=== PATIENT | male | born 1955 | race Caucasian/White ===

== ENCOUNTER 2017-04-23 02:30 | Inpatient (IN) | payer OTHER ==
[~2017-04-23] VITALS: Ht 167.6 cm; Wt 56.7 kg
[~2017-04-23 02:30] MED LIST: ASPI81CT89 PO; LEVO0.173 PO; SIMV20TA1 PO
--- NOTE | 2017-04-23 02:30 | NUR ---
DAYRON T ER BED 4
--- NOTE | 2017-04-23 02:38 | NUR ---
Patient being evaluated by physician at bedside.
[2017-04-23] MEDS ORDERED: NACL 0.9% 1,000 ML IV ONE ×2 (02:40→03:20)
[2017-04-23] MEDS ORDERED: ONDANSETRON 4 MG/2 ML VIAL IVP ONE (02:40)
[2017-04-23] MEDS ORDERED: MORPHINE SULFATE 4 MG/ML SYR IVP ONE ×2 (02:40→03:10)
--- NOTE | 2017-04-23 02:45 | NUR ---
62Y/M BIBA C/O CHEST PAIN X1 HOUR W/ SOB. PMH HIGH CHOLESTEROL, COPD, AND THYROID DZ. PER EMS PT WAS AT REST WHEN CP STARTED, PT TOOK 325 OF ASPIRIN, EMS GAVE 2 NITRO SL, STARTED 18G IV TO LEFT AC, AND PUT PT ON 4L NC. PT IS C/O SUBSTERNAL CP, PRESSURE, SOB. BL LUNG SOUNDS CLEAR THROUGHOUT, TACHYPNEA NOTED, SHALLOW RESPIRATIONS/LABORED. PT HAS 10/10 CHEST PAIN, SUBSTERNAL, NON RADIATING, PRESSURE. PT IN BED SIDE RAILS UPX2, ER MD NOTIFIED OF PT STATUS.
[2017-04-23 02:51] LABS: BASOPHILS # (AUTO) 0.2 K/uL (0.00-0.22); BASOPHILS % (AUTO) 2.7 % (0.0-2.0); EOSINOPHILS # (AUTO) 0.1 K/uL (0-0.4); EOSINOPHILS % (AUTO) 1.1 % (0.0-4.0); HEMATOCRIT 37.2 % (36-52); HEMOGLOBIN 12.4 g/dL (12.0-18.0); LYMPHOCYTES # (AUTO) 0.6 K/uL (2.0-11.5); LYMPHOCYTES % (AUTO) 7.9 % (20.5-51.1); MEAN CORPUSCULAR HEMOGLOBIN 29 pg (27-31); MEAN CORPUSCULAR HGB CONC 33 g/dL (33-37); MEAN CORPUSCULAR VOLUME 88 fL (80-94); MONOCYTES # (AUTO) 0.5 K/uL (0.8-1.0); MONOCYTES % (AUTO) 5.8 % (1.7-9.3); NEUTROPHILS # (AUTO) 6.7 K/uL (1.8-7.7); PLATELET COUNT (AUTO) 266 K/uL (140-450); RED BLOOD CELL COUNT(AUTO) 4.23 MIL/uL (4.20-6.10); RED CELL DISTRIBUTION WIDTH 14.8 % (11.6-13.7); WHITE BLOOD COUNT (AUTO) 8.1 K/uL (4.8-10.8)
[2017-04-23 02:56] VITALS: BP 97/69
[2017-04-23 03:04] LABS: ANION GAP 13.7 (8-16); CARBON DIOXIDE 25.3 mmol/L (21-32); CREATININE 1.9 mg/dL (0.7-1.3)
[2017-04-23] MEDS ORDERED: NITROGLYCERIN 0.4 MG TAB SL ONE (03:05)
[2017-04-23 03:07] LABS: NEUTROPHILS % (AUTO) 82.5 % (42.2-75.2)
[2017-04-23 03:10] LABS: ALBUMIN 3.4 g/dL (3.4-5.0); TOTAL BILIRUBIN 0.4 mg/dL (0.0-1.0)
[2017-04-23 03:19] LABS: PROTHROMBIN TIME 10.2 secs (10.8-13.4)
--- NOTE | 2017-04-23 03:50 | NUR ---
PT TAKEN TO CT VIA [facility] .
[2017-04-23] MEDS ORDERED: DOCU-299 PO (03:53)
[2017-04-23] MEDS ORDERED: TAMS0.4C96 PO (03:53)
[2017-04-23] MEDS ORDERED: FINA5TAB1 PO (03:53)
--- NOTE | 2017-04-23 04:07 | NUR ---
PT RETURNED FROM CT.
--- NOTE | 2017-04-23 04:10 | NUR ---
PT IN BED RESTING, WILL CONTINUE TO MONITOR.
--- NOTE | 2017-04-23 04:16 | NUR ---
Patient will be admitted to care of DR LUNDBERG. Admited to TELE. Will go to room 111B. Belongings list completed. Report to JONG.
[2017-04-23] MEDS ORDERED: VANCOMYCIN 1,000 MG in DEXTROSE 5% 250 ML IV ONE (04:20)
[2017-04-23] MEDS ORDERED: VANCOMYCIN 1,000 MG VIAL ONE (04:37)
[2017-04-23 04:40] LABS: FREE T4 (FREE THYROXINE) 0.83 ng/dL (0.76-1.46); THYROID STIMULATING HORMONE 23.75 uIU/mL (0.34-3.74)
--- NOTE | 2017-04-23 04:48 | NUR ---
LAB AT BEDSIDE ON TELE FLOOR, VANCOMYCIN IVPB GIVEN TO CARA TO GIVE TO FLOOR RN TO START AFTER CULTURES PER DR. MONTLEONGO.
--- NOTE | 2017-04-23 05:02 | NUR ---
PT ARRIVED ON UNIT VIA GURNEY AND AMBULATED TO BED WITH STEADY GAIT. PT IS A/OX4, ON 10L O2 VIA NONREBREATHER MASK. PT HAS A LEFT AC 18G IV. SKIN INTACT. SAFETY PRECAUTIONS IN PLACE. UPDATED BOARD. DISCUSSED PLAN OF CARE WITH PT, PT VERBALIZED UNDERSTANDING. VITAL SIGNS WITHIN NORMAL LIMITS. PT IN STABLE CONDITION, NO SIGNS OF DISTRESS NOTED. BED IN LOW POSITION, CALL LIGHT WITHIN REACH. WILL CONTINUE TO MONITOR.
[2017-04-23 06:00] VITALS: BP 136/91
[2017-04-23] MEDS ORDERED: PNEUMOCOCCAL VACCINE 23 MCG/0.5 ML VIAL IMVAC PRN (06:10)
[2017-04-23] MEDS ORDERED: INFLUENZA VIRUS VACCINE QUAD 0.5 ML SYR IMVAC PRN (06:10)
[2017-04-23] MEDS ORDERED: NITROGLYCERIN 0.4 MG TAB SL PRN (06:35)
[2017-04-23] MEDS ORDERED: ONDANSETRON 4 MG/2 ML VIAL IVP PRN (06:35)
--- NOTE | 2017-04-23 06:35 | NUR ---
SPOKE TO DR SCHUSTER ABOUT ORDERS FOR PT. GAVE ORDERS OVER PHONE BECAUSE HIS HOME COMPUTER WAS NOT WORKING.
[2017-04-23] MEDS: DEXT 5% / NACL 0.45% 1,000 ML IV SCH (07:11)
--- NOTE | 2017-04-23 07:35 | NUR ---
ENDORSED PT TO DAY SHIFT RN, PT IN STABLE CONDITION.
[2017-04-23] MEDS: ECOTRIN 81 MG TABEC PO SCH (08:48)
[2017-04-23] MEDS: METOPROLOL 25 MG TAB PO SCH ×2 (08:49→21:02)
[2017-04-23] MEDS ORDERED: ENOXAPARIN 40 MG/0.4 ML SYR SUBQ SCH (09:00)
--- NOTE | 2017-04-23 09:56 | NUR ---
PATIENT HAS BEEN SCREENED AND CATEGORIZED MODERATE NUTRITION RISK. PATIENT WILL BE SEEN WITHIN 3-5 DAYS OF ADMISSION. 04/25/17-04/27/[address]
[2017-04-23] MEDS: IPRATROPIUM 0.02% 0.5 MG/2.5 ML NEBU INH SCH ×4 (11:08→23:38)
[2017-04-23 13:35] LABS: ANION GAP 10.7 (8-16); CARBON DIOXIDE 25.6 mmol/L (21-32); CREATININE 1.4 mg/dL (0.7-1.3); POTASSIUM 4.3 mmol/L (3.5-5.1)
--- NOTE | 2017-04-23 15:02 | NUR ---
CM NOTE INITIAL REVIEW FAXED TO [facility] [phone] MARTIN PH# [phone] AND TO [facility] [phone] PH# [phone]
[2017-04-23] MEDS ORDERED: LEVOFLOXACIN 500 MG TAB PO SCH (16:00)
[2017-04-23 16:03] VITALS: BP 92/56
--- NOTE | 2017-04-23 19:25 | NUR ---
RECEIVED REPORT FROM DAY SHIFT RN AT PT BEDSIDE. PT IS A/OX4, ON 4L O2 VIA OXYMIZER. PT HAS A LEFT AC 18G IV. SKIN INTACT. AMBULATES WITH STEADY GAIT. SAFETY PRECAUTIONS IN PLACE. UPDATED BOARD. DISCUSSED PLAN OF CARE WITH PT, PT VERBALIZED UNDERSTANDING. VITAL SIGNS STABLE. PT IN STABLE CONDITION, NO SIGNS OF DISTRESS NOTED. BED IN LOW POSITION, CALL LIGHT WITHIN REACH. WILL CONTINUE TO MONITOR.
[2017-04-23 20:02] VITALS: BP 135/53
[2017-04-23 20:07] LABS: CREATINE KINASE MB 1.4 ng/mL (0-3.6)
[2017-04-23] MEDS ORDERED: SIMVASTATIN 20 MG TAB PO SCH (21:00)
[2017-04-23] MEDS ORDERED: FINASTERIDE 5 MG TAB PO SCH (21:00)
[2017-04-23] MEDS ORDERED: TAMSULOSIN 0.4 MG CAP PO SCH (21:00)
[2017-04-23] MEDS: DOCUSATE SODIUM 100 MG GELCAP PO SCH (21:01)
[2017-04-23] MEDS: ENOXAPARIN 60 MG/0.6 ML SYR SUBQ SCH (21:04)
--- NOTE | 2017-04-23 21:06 | NUR ---
ADMINISTERED SCHEDULED MEDICATIONS, PT TOLERATED WELL. PT REFUSED ZOCOR, EDUCATED PT ON RISKS AND BENEFITS, PT VERBALIZED UNDERSTANDING AND STILL REFUSED. PT IN STABLE CONDITION, NO SIGNS OF DISTRESS NOTED. BED LIGHT IN LOW POSITION, CALL LIGHT WITHIN REACH. WILL CONTINUE TO MONITOR.
[2017-04-23 22:10] LABS: APPEARANCE,URINE CLEAR (CLEAR); BILIRUBIN,URINE NEGATIVE (NEGATIVE); BLOOD, URINE NEGATIVE (NEGATIVE); LEUKOCYTE ESTERASE ,URINE NEGATIVE (NEGATIVE); NITRITE, URINE NEGATIVE (NEGATIVE); UGLUCOSE NEGATIVE (NEGATIVE)
[2017-04-23 22:13] LABS: COLOR,URINE STRAW (YELLOW)
[2017-04-24] VITALS: BP 104/62
[2017-04-24] MEDS: DEXT 5% / NACL 0.45% 1,000 ML IV SCH (02:35)
[2017-04-24] MEDS: IPRATROPIUM 0.02% 0.5 MG/2.5 ML NEBU INH SCH ×4 (02:47→15:00)
[2017-04-24 04:00] VITALS: BP 90/56
--- NOTE | 2017-04-24 05:55 | NUR ---
ADMINISTERED SCHEDULED MEDICATIONS, PT TOLERATED WELL. PT IN STABLE CONDITION, NO SIGNS OF DISTRESS NOTED. BED IN LOW POSITION, CALL LIGHT WITHIN REACH. WILL CONTINUE TO MONITOR.
[2017-04-24] MEDS ORDERED: LEVOTHYROXINE 0.1 MG TAB PO SCH (06:30)
[2017-04-24] MEDS ORDERED: LEVOTHYROXINE 0.1 MG, LEVOTHYROXINE 0.075 MG PO SCH ×2 (06:30)
[2017-04-24 07:08] LABS: BASOPHILS % (AUTO) 0.9 % (0.0-2.0); EOSINOPHILS # (AUTO) 0.1 K/uL (0-0.4); EOSINOPHILS % (AUTO) 1.6 % (0.0-4.0); HEMATOCRIT 29.3 % (36-52); HEMOGLOBIN 9.6 g/dL (12.0-18.0); LYMPHOCYTES # (AUTO) 0.5 K/uL (2.0-11.5); LYMPHOCYTES % (AUTO) 10.9 % (20.5-51.1); MEAN CORPUSCULAR HEMOGLOBIN 29 pg (27-31); MEAN CORPUSCULAR HGB CONC 33 g/dL (33-37); MEAN CORPUSCULAR VOLUME 89 fL (80-94); MONOCYTES # (AUTO) 0.6 K/uL (0.8-1.0); MONOCYTES % (AUTO) 13.1 % (1.7-9.3); NEUTROPHILS # (AUTO) 3.7 K/uL (1.8-7.7); NEUTROPHILS % (AUTO) 73.5 % (42.2-75.2); PLATELET COUNT (AUTO) 170 K/uL (140-450); RED BLOOD CELL COUNT(AUTO) 3.28 MIL/uL (4.20-6.10); RED CELL DISTRIBUTION WIDTH 15.1 % (11.6-13.7); WHITE BLOOD COUNT (AUTO) 4.9 K/uL (4.8-10.8)
[2017-04-24 07:18] LABS: ANION GAP 7.1 (8-16); CARBON DIOXIDE 28.5 mmol/L (21-32); CREATININE 1.2 mg/dL (0.7-1.3); POTASSIUM 4.6 mmol/L (3.5-5.1)
--- NOTE | 2017-04-24 07:26 | NUR ---
ENDORSED PT IN STABLE CONDITION TO DAY SHIFT RN AT BEDSIDE FOR CONTINUITY OF CARE.
--- NOTE | 2017-04-24 07:30 | NUR ---
RECEIVED PT AWAKE. NO SOB NOTED. NO C/O PAIN AT THIS TIME. IV TO LT AC PATENT AND INTACT. CHEST DIMINISHED AIR ENTRY TO THE BASES WITH O2 AT 4LPM VIA OXYMIZER, O2 SATS AT 93%. ABDOMEN SOFT, BOWEL SOUNDS PRESENT. NO EDEMA NOTED. INSTRUCTED PT TO CALL FOR ASSISTANCE, CALL LIGHT WITHIN REACH, PT VERBALIZED UNDERSTANDING.
[2017-04-24 08:00] VITALS: BP 103/65
[2017-04-24] MEDS ORDERED: ASPIRIN 81 MG TAB.CHEW PO SCH (09:00)
[2017-04-24] MEDS ORDERED: NON-FORMULARY ITEM (Levothyroxine Sodium* (Synthroid*) 0.175 MG) PO SCH (09:00)
--- NOTE | 2017-04-24 09:11 | NUR ---
DAMIÁN NOTE CONCURRENT REVIEW FAXED TO [facility] [phone] AND TO [facility] [phone] PH# [phone]. PER [facility] DAMIÁN SALAZAR PH# [phone], USE [facility] FOR DME HOME O2. FAXED ORDER FOR HOME O2 TO [facility] [phone] ATTN: CASTRO # [phone].
[2017-04-24] MEDS: ECOTRIN 81 MG TABEC PO SCH (09:44)
[2017-04-24] MEDS: METOPROLOL 25 MG TAB PO SCH (09:44)
[2017-04-24] MEDS: DOCUSATE SODIUM 100 MG GELCAP PO SCH (09:44)
[2017-04-24] MEDS: ENOXAPARIN 60 MG/0.6 ML SYR SUBQ SCH (09:45)
[2017-04-24] MEDS ORDERED: LEVOTHYROXINE SODIUM PO (10:01)
[2017-04-24] MEDS ORDERED: SPIMDI INH (10:01)
[2017-04-24] MEDS ORDERED: LEVO500T2 PO (10:10)
[2017-04-24 12:00] VITALS: BP 131/73
--- NOTE | 2017-04-24 12:48 | NUR ---
CM NOTE PER [facility] DAMIÁN SALAZAR, FOR [facility] O2 AUTH# [id number]. PER CASTRO OF [facility]# [phone], PORTABLE O2 TANK WILL BE DELIVERED TO PATIENT BEDSIDE TODAY ETA 1500. PER CASTRO, OXYGEN CONCENTRATOR WILL BE DELIVERED TO PATIENT'S HOME TODAY AROUND LATE AFTERNOON TO EVENING TIME, TO MAKE SURE SOMEBODY IS AT HOME TO RECEIVE IT, AFTER WHICH PATIENT CAN GO HOME ONCE OXYGEN CONCENTRATOR HAS BEEN DELIVERED TO THE HOME. NURSE BRENDAN TELLO.
--- NOTE | 2017-04-24 15:45 | NUR ---
OXYGEN TANK IS DELIVERED AT THE PT'S BEDSIDE BY A LEAD SHAREPOINT DEVELOPER. PT SIGNED THE DELIVERY NOTICE. PER PT, THE CONCENTRATOR WILL BE DELIVERED TO HIS HOME ADDRESS AROUND 6 PM TONIGHT. PT IS AWARE THAT HE CAN NOT BE DISCHARGED UNTIL THE CONCENTRATOR HAS ARRIVED. PT VERBALIZED UNDERSTANDING.
[2017-04-24 16:00] VITALS: BP 127/84
[2017-04-24] MEDS ORDERED: LEVOFLOXACIN 250 MG TAB PO SCH (16:00)
--- NOTE | 2017-04-24 16:00 | NUR ---
PT'S IV INFILTRATED. STATED HE DOES NOT WANT TO HAVE A NEW LINE. PT STATED HE WILL STARTED HIS ORAL ANTIBIOTIC LEVAQUIN TONIGHT AT HOME. PT ALSO DO NOT WANT TO HAVE THE TELE BOX. Addendum: 04/24/17 at 1848 by Shara Arauz RN PT STATED HE WILL START HIS ORAL ANTIBIOTIC LEVAQUIN TONIGHT AT HOME.
--- NOTE | 2017-04-24 18:30 | NUR ---
PT STATED THE CONCENTRATOR HAS ARRIVED IN HIS PLACE IN [place] AND SOMEBODY IS COMING TO PICK HIM UP. DISCHARGE INSTRUCTIONS AND PRESCRIPTIONS GIVEN TO PT WHICH VERBALIZED FULL UNDERSTANDING OF THE INSTRUCTIONS GIVEN AND AND THE NEED TO FOLLOW UP WITH PCP WITHIN 7 DAYS.
--- NOTE | 2017-04-24 18:40 | NUR ---
PT ESCORTED OUT IN STABLE CONDITION WITH OXYGEN AT 2 LPM VIA NASAL CANNULA. NO SOB NOTED. NO COMPLAINTS MADE. PT IS D/C HOME WITH A FRIEND.
== END 2017-04-24 18:40 | disposition home or self-care (01) | DRG 682 ==
LOC: MED 02:30 → MTU 03:56
PROVIDERS: ADMIT Hospitalist; ATTEND Hospitalist
PROC: 3E0234Z Introduction of Serum, Toxoid and Vaccine into Muscle, Percutaneous Approach (ICD-10-PCS; principal; 2017-04-24)
DX: N17.9 Acute kidney failure, unspecified (principal); J18.9 Pneumonia, unspecified organism; C34.90 Malignant neoplasm of unspecified part of unspecified bronchus or lung; R07.89 Other chest pain; J44.9 Chronic obstructive pulmonary disease, unspecified; E03.9 Hypothyroidism, unspecified; N40.0 Benign prostatic hyperplasia without lower urinary tract symptoms; Z88.0 Allergy status to penicillin; Z79.82 Long term (current) use of aspirin; Z79.899 Other long term (current) drug therapy; Z92.21 Personal history of antineoplastic chemotherapy; Z92.3 Personal history of irradiation; Z80.9 Family history of malignant neoplasm, unspecified; Z87.891 Personal history of nicotine dependence; Z23 Encounter for immunization
CPT/HCPCS: 36415; 36600; 71010; 71250; 80048; 80053; 81003; 82550; 82553; 82803; 83605; 83880; 84439; 84443; 84484; 85025; 85379; 85610; 85730; 87040; 87081; 90658; 90732; 93005; 93970; 94640; 96374; 96375; 99285; J1650; J2270; J2405; J3370; J7030; J7060; J7644; Q0092

== ENCOUNTER 2017-08-07 19:20 | Inpatient (IN) | payer OTHER ==
[~2017-08-07] VITALS: Ht 167.6 cm; Wt 62.6 kg
[~2017-08-07 19:20] MED LIST changes: +DOCU-299 PO; +FINA5TAB1 PO; -LEVO0.173 PO; +LEVO500T2 PO; +LEVOTHYROXINE SODIUM PO; +SPIMDI INH; +TAMS0.4C96 PO
[2017-08-07 19:27] VITALS: BP 146/67
--- NOTE | 2017-08-07 19:40 | NUR ---
62 Y/O M W/C/O PT REPORTS NECK AND FACE SWELLING X 4 DAYS. 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 MILD SOB NOTED. PT SPEAKING IN 3-4 WORD SENTENCES. PER PT, STATES HIS MD INFORMED HIS THYROID LEVELS ARE HIGH. MED HX: LUNG CA, COPD, PROSTATE RX: SIMVASTATIN, FINASTERIDE, DOCUSATE,LEVOTHYROXINE, TAMSULOSIN, HYDROCODONE, SPIRIVA
[2017-08-07] MEDS ORDERED: NACL 0.9% 500 ML IV SCH (19:50)
[2017-08-07] MEDS ORDERED: DILTIAZEM 25 MG/5 ML VIAL IVP ONE ×4 (20:10→22:20)
--- NOTE | 2017-08-07 20:15 | NUR ---
PT CONTINUES TACHY, CONTINUES TO DENY ANY CHEST PAIN, ON NC 2 LT. ER MD MADE AWARE.
[2017-08-07 20:17] LABS: BASOPHILS # (AUTO) 0.1 K/uL (0.00-0.22); EOSINOPHILS # (AUTO) 0.1 K/uL (0-0.4); EOSINOPHILS % (AUTO) 0.8 % (0.0-4.0); HEMOGLOBIN 13.2 g/dL (12.0-18.0); LYMPHOCYTES # (AUTO) 0.4 K/uL (2.0-11.5); LYMPHOCYTES % (AUTO) 6.3 % (20.5-51.1); MEAN CORPUSCULAR HEMOGLOBIN 28 pg (27-31); MEAN CORPUSCULAR HGB CONC 32 g/dL (33-37); MEAN CORPUSCULAR VOLUME 90 fL (80-94); MONOCYTES # (AUTO) 0.8 K/uL (0.8-1.0); MONOCYTES % (AUTO) 12.7 % (1.7-9.3); NEUTROPHILS % (AUTO) 78.2 % (42.2-75.2); PLATELET COUNT (AUTO) 195 K/uL (140-450); RED BLOOD CELL COUNT(AUTO) 4.66 MIL/uL (4.20-6.10); RED CELL DISTRIBUTION WIDTH 18.8 % (11.6-13.7); WHITE BLOOD COUNT (AUTO) 6.4 K/uL (4.8-10.8)
--- NOTE | 2017-08-07 20:21 | NUR ---
XRAY AT BEDSIDE
[2017-08-07] MEDS ORDERED: ALBUTEROL SULFATE/IPRATROPIU 3 ML SOL IH ONE (20:25)
[2017-08-07 20:30] LABS: ANION GAP 18.7 (8-16); CREATININE 1.6 mg/dL (0.7-1.3); POTASSIUM 4.7 mmol/L (3.5-5.1)
[2017-08-07 20:36] LABS: ALBUMIN 3.4 g/dL (3.4-5.0); TOTAL BILIRUBIN 1.2 mg/dL (0.0-1.0)
--- NOTE | 2017-08-07 20:40 | NUR ---
MOVED TO ER BED 3
--- NOTE | 2017-08-07 20:40 | NUR ---
PT STATES HE ISTILL UNABLE TO PROVIDE URINE SAMPLE. FLORECITA FLOWERS INFORMED.
[2017-08-07 20:41] LABS: PROTHROMBIN TIME 15.5 secs (10.8-13.4)
--- NOTE | 2017-08-07 20:45 | NUR ---
Regina diego in [facility] - 08/08/17 at 0213 by ABDIAS PT HEART RATE DECREASED TO 110, AFTER ADMINISTRATION OF DILTIAZEM 10 MG IV PUSH.
[2017-08-07] MEDS ORDERED: NACL 0.9% 1,000 ML IV ONE ×3 (21:20→22:00)
--- NOTE | 2017-08-07 21:20 | NUR ---
PT CONTINUES TACHY ON CURED MEATS SUPERVISOR, ER MADE AWARE.
--- NOTE | 2017-08-07 21:20 | NUR ---
Regina diego in ED - 08/08/17 at 0213 by ABDIAS PT RAMOS LARSEN ON MERCHANDISE ASSOCIATE, FLORECITA FLOWERS MADE AWARE.
[2017-08-07] MEDS ORDERED: ASPIRIN 81 MG TAB.CHEW PO ONE (21:35)
--- NOTE | 2017-08-07 21:38 | NUR ---
PT STATES HE DOESNT FEEL LIKE URINATING AT THE MOMENT TO PROVIDE A URINE SAMPLE, ER MADE AWARE.
[2017-08-07] MEDS ORDERED: ACETAMINOPHEN 325 MG TAB PO PRN (21:50)
[2017-08-07] MEDS ORDERED: ALBUTEROL 0.083% 2.5 MG/3 ML NEBU INH PRN (21:50)
[2017-08-07] MEDS ORDERED: MORPHINE SULFATE 2 MG/ML SYR IVP PRN (21:50)
[2017-08-07] MEDS ORDERED: ONDANSETRON 4 MG/2 ML VIAL IVP PRN (21:50)
[2017-08-07] MEDS ORDERED: DILTIAZEM 25 MG/5 ML VIAL IVP PRN (22:00)
--- NOTE | 2017-08-07 22:06 | NUR ---
[facility]
--- NOTE | 2017-08-07 22:15 | NUR ---
ER SPEAKING TO PT AND PT'S AT BEDSIDE.
--- NOTE | 2017-08-07 22:45 | NUR ---
PT HEART RATE DECREASED TO 110, AFTER ADMINISTRATION OF DILTIAZEM 10 MG IV PUSH.
--- NOTE | 2017-08-07 22:50 | NUR ---
Patient will be admitted to care of DR BERGERON. Admited to TELEMETRY ROOM 120. Belongings list completed. Report to JACOB NAVARRO.
[2017-08-07 22:55] VITALS: BP 125/85
--- NOTE | 2017-08-07 22:55 | NUR ---
ADMITTED A 62 M FROM ER. CAME BY TUSHAR ACCOMPANIED BY . PT ON TELE MONITOR - 123 ,UNCONTROLLED A [id number]. PT IS AWAKE,ALERT AND ORIENTED X4. ON O22L/NC WITH O2 SAT 97 %. RESP -22/MIN. AFEBRILE. WITH GEN WEAKNESS. SAID HAS POOR APPETITE FOR 2 WEEKS. NO C/O ANY PAIN NOTED. HAS HL ON THE LT AC #20. CLEAR AND PATENT. SKIN INTACT. NO EDEMA NOTED. PLAN OF CARE DISCUSSED AND VERBALIZED UNDERSTANDING. BED ON LOWEST POSITION, CALL LIGHT PLACED WITHIN EASY REACH. FREQUENT ROUNDS NEEDED. WILL CONTINUE TO MONITOR.
[2017-08-07] MEDS: LEVOFLOXACIN 250 MG/D5 PREMIX 50 ML IV SCH (23:58)
[2017-08-08] VITALS (7 sets, daily range): BP systolic 100–144; BP diastolic 68–99
--- NOTE | 2017-08-08 00:45 | NUR ---
PAGED DR. BERGERON, RECREATIONAL RESORT MANAGER. CALLED BACK . MADE AWARE ABOUT THE LACTIC ACID 5.0 ,NO NEW ORDER MADE. ALSO ABOUT THE HR STILL ON THE 140. SHE SAID TO CALL DR. ALAN Guo
--- NOTE | 2017-08-08 00:55 | NUR ---
PAGED DR. Sari PHILLIPS FOR HR STILL ON 140. SVT , PROBABLE A FLUTER AND WHEN SLOW UNCONTROLLED A FIB. CALLED BACK WITH ORDER.
[2017-08-08] MEDS: ALBUTEROL 0.083% 2.5 MG/3 ML NEBU INH SCH ×4 (01:00→19:32)
[2017-08-08] MEDS: IPRATROPIUM 0.02% 0.5 MG/2.5 ML NEBU INH SCH ×4 (01:00→19:32)
--- NOTE | 2017-08-08 01:23 | NUR ---
HR 140/MIN .PT NO C/O ANY DISCOMFORT NOTED. DIGOXIN 0.5MG IVP GIVEN PER DR. ALAN Guo ORDER. WILL CONTINUE TO MONITOR.
[2017-08-08] MEDS ORDERED: DIGOXIN 0.25 MG/ML AMP IV SCH (01:30)
--- NOTE | 2017-08-08 01:31 | NUR ---
RN AT BED SIDE, HR IS 141 HOLD HHNTX , NO SOB OR ANY RESPIRATORY DISTRESS
--- NOTE | 2017-08-08 02:14 | NUR ---
PICKED UP BY NUCLEAR [employer] TECH FOR PULMONARY VQ SCAN WITH O22L/NC ON BY WHEELCHAIR. ACCOMPANIED BY ME DURING THE TEST. PT SAID HE IS OK WITH NO PAIN/DISCOMFORT NOTED.
--- NOTE | 2017-08-08 02:23 | NUR ---
PT IN NUCLEAR LAB. BP NOT TAKEN BUT HR TAKEN ON THE TELE MONITOR 136/MIN. PT NO C/O ANY PAIN NOR DISCOMFORT WHILE IN NUCLEAR LAB.
--- NOTE | 2017-08-08 02:41 | NUR ---
PT STILL IN NUCLEAR MED. TELE MONITOR ON. HR CONVERTED TO SR 97/MIN.
--- NOTE | 2017-08-08 02:55 | NUR ---
BACK FROM [facility]. TOLERATED PROCEDURE WELL. NO SOB NOTED.
[2017-08-08] MEDS ORDERED: HEPARIN PER PHARMACY MC PRN ×3 (05:15→05:30)
--- NOTE | 2017-08-08 05:15 | NUR ---
DR. BOYKIN PAGED FOR RESULT OF PULMONARY VQ SCAN. CALLED BACK , MADE AWARE. WITH ORDER TO START HEPARIN DRIP PER PHARMACY.
[2017-08-08] MEDS ORDERED: hePARIN / DEXT 5% PREMIX 250 ML IV SCH (05:20)
--- NOTE | 2017-08-08 06:00 | NUR ---
ANOTHER IV ACCESS STARTED BY JACOB ESPINOCLAIMS EXAMINER ON THE LT HAND #22 FOR HEPARIN DRIP.
[2017-08-08 06:24] LABS: BASOPHILS # (AUTO) 0.1 K/uL (0.00-0.22); BASOPHILS % (AUTO) 1.7 % (0.0-2.0); EOSINOPHILS # (AUTO) 0.1 K/uL (0-0.4); EOSINOPHILS % (AUTO) 1.3 % (0.0-4.0); HEMATOCRIT 37.6 % (36-52); LYMPHOCYTES # (AUTO) 0.5 K/uL (2.0-11.5); LYMPHOCYTES % (AUTO) 6.6 % (20.5-51.1); MEAN CORPUSCULAR HEMOGLOBIN 29 pg (27-31); MEAN CORPUSCULAR HGB CONC 32 g/dL (33-37); MEAN CORPUSCULAR VOLUME 90 fL (80-94); MONOCYTES # (AUTO) 0.9 K/uL (0.8-1.0); MONOCYTES % (AUTO) 12.7 % (1.7-9.3); NEUTROPHILS # (AUTO) 5.4 K/uL (1.8-7.7); NEUTROPHILS % (AUTO) 77.7 % (42.2-75.2); PLATELET COUNT (AUTO) 153 K/uL (140-450); RED BLOOD CELL COUNT(AUTO) 4.16 MIL/uL (4.20-6.10); RED CELL DISTRIBUTION WIDTH 18.7 % (11.6-13.7)
[2017-08-08] MEDS: hePARIN / DEXT 5% PREMIX 250 ML IV SCH ×2 (06:29→14:41)
--- NOTE | 2017-08-08 06:29 | NUR ---
HEPARIN IVP 4400 UNITS GIVEN PER PROTOCOL @0611. THEN @ 0629 HEPARIN DRIP STARTED. PT AWARE OF THE MEDICATION. 1ST PTT ORDERED @ 1211 THIS PM.
--- NOTE | 2017-08-08 07:15 | NUR ---
ENDORSED PT IN STABLE CONDITION TO AM NURSE.
[2017-08-08 07:17] LABS: ALBUMIN 2.9 g/dL (3.4-5.0); ANION GAP 17.7 (8-16); CREATININE 1.3 mg/dL (0.7-1.3); POTASSIUM 4.7 mmol/L (3.5-5.1); TOTAL BILIRUBIN 1.2 mg/dL (0.0-1.0)
--- NOTE | 2017-08-08 07:18 | NUR ---
REPORT RECEIVED FROM BILINGUAL INSTRUCTOR NURSE, PT RESTING QUIETLY IN NAD CURRENTLY RECEIVING NEB TREATMENT, AROUSES EASILY, SKIN WARM DRY COLOR WNL, DENIES CHEST PAIN OR SOB OR OTHER DISCOMFORT, HEPARIN INFUSING AT 1100 UNITS/HR, NO S/S OF BLEEDING NOTED, PLAN OF CARE REVIEWED, CALL HOLDER WITHIN REACH, SIDE RAILS UP, WILL CONTINUE TO MONITOR.
[2017-08-08 08:17] LABS: CREATINE KINASE MB 0.3 ng/mL (0-3.6)
--- NOTE | 2017-08-08 08:55 | NUR ---
PT SITTING UP EATING BREAKFAST,.
[2017-08-08] MEDS: ASPIRIN 81 MG TAB.CHEW PO SCH (09:00)
--- NOTE | 2017-08-08 10:37 | NUR ---
FAXED INITIAL REVIEW TO [facility] [phone] PHONE MARTIN [phone]
--- NOTE | 2017-08-08 10:46 | NUR ---
US AT BEDSIDE.
--- NOTE | 2017-08-08 12:52 | NUR ---
PATIENT ON ROOM AIR UPON ARRIVAL. PATIENT STATED HE HAD JUST GOT UP. PULSE OX SATURATION AT 93% NO SOB. ADMINISTERED NEB TX. PATIENT TOLERATED WELL. NO SOB OR RESPIRATORY DISTRESS NOTED AT THIS. VISITOR AT BEDSIDE.
--- NOTE | 2017-08-08 13:15 | NUR ---
HEPARIN STOPPED PER PROTOCOL FOR PTT 101.3, PT AWAKE ALERT, SMILING WITH AT BEDSIDE, NO S/S OF BLEEDING NOTED AT THIS TIME, WILL CONTINUE TO MONITOR.
--- NOTE | 2017-08-08 14:05 | NUR ---
PER RADIOLOGIST, DR GALEANO, PER US TECH RINKU, THORACETHESIS TO BE DONE TOMORROW AFTER HEPARIN STOPPED FOR 4HRS, WILL STOP HEPARIN AT 0800 15 FOR THORACENTHESIS TOMORROW AROUND 1200NOON. DR BERGERON PAGED AND MADE AWARE OF PLAN, PT UPDATED WITH PLAN, PT AGREES, CONSENT SIGNED BY PT.
--- NOTE | 2017-08-08 14:30 | NUR ---
PER HEPARIN PROTOCOL, HEPARIN DRIP RESTARTED AT LOWER DOSE AT 900 UNITS/HR (DECREASED 3 UNITS/KG/HR), PT EDUCATED TO NOTIFY FOR ANY S/S OF BLEEDING, PT VERBALIZED FULL UNDERSTANDING.
[2017-08-08 15:19] LABS: CREATINE KINASE MB 27.4 ng/mL (0-3.6)
--- NOTE | 2017-08-08 15:30 | NUR ---
PATIENT HAS BEEN SCREENED AND CATEGORIZED MODERATE NUTRITION RISK. PATIENT WILL BE SEEN WITHIN 3-5 DAYS OF ADMISSION. 08/10/17 - 08/12/[address]
--- NOTE | 2017-08-08 16:00 | NUR ---
PT ASSISTED UP TO BATHROOM, PT AMBULATES WITH STEADY GAIT WITHOUT HELP, URINE COLLECTED AND SENT TO LAB, VITALS STABLE, PT DENIES PAIN OR DISOCMOFRT, PT REMAINS ON HEPARIN DRIP AT 900 U/HR, NO S/S OF BLEEDING NOTED, AT [facility], WILL CONTINUE TO [facility].
[2017-08-08 18:29] LABS: APPEARANCE,URINE CLEAR (CLEAR); BILIRUBIN,URINE NEGATIVE (NEGATIVE); BLOOD, URINE NEGATIVE (NEGATIVE); LEUKOCYTE ESTERASE ,URINE NEGATIVE (NEGATIVE); NITRITE, URINE NEGATIVE (NEGATIVE); PH,URINE 5.5 (5.0-9.0); UGLUCOSE NEGATIVE (NEGATIVE)
[2017-08-08 18:31] LABS: COLOR,URINE YELLOW (YELLOW)
--- NOTE | 2017-08-08 19:20 | NUR ---
REPORT GIVEN TO REPRINT SORTER NURSE, PT IN STABLE CONDITION. Addendum: 08/08/17 at 1945 by Kylee Johnston RN HEPARIN DRIP CONTINUES AT 900 UNITS/HR, IV SITE WNL, NO S/S OF BLEEDING ANYWHERE NOTED, RESP EVEN UNLABORED, PT REMAINS ON 2L NC.
--- NOTE | 2017-08-08 19:50 | NUR ---
RECEIVED PT IN STABLE CONDITION FROM AM NURSE. AWAKE, ALERT AND ORIENTED X4. ON TELE MONITOR -ST. NO C/O ANY DISCOMFORT/PAIN NOTED. GETTING ROUTINE BREATHING TREATMENT AT THIS TIME. HAS HEPARIN DRIP INFUSING WELL ON THE LT HAND g#22. ANOTHER IV ACCESS HL, ON THE LT AC#20. DRESSING WAS CHANGED. ACCESS IS PATENT AND INTACT. BED ON LOW POSITION, CALL LIGHT PLACED WITHIN EASY REACH.
[2017-08-08] MEDS: FUROSEMIDE 20 MG/2 ML VIAL IVP SCH (20:33)
[2017-08-08] MEDS: LEVOFLOXACIN 250 MG/D5 PREMIX 50 ML IV SCH (21:02)
--- NOTE | 2017-08-08 21:42 | NUR ---
LAB CALLED FOR RESULT OF PTT 61.7 NO CHANGE ON THE CURRENT RATE OF HEPARIN DRIP.
--- NOTE | 2017-08-08 22:30 | NUR ---
PT ASLEEP. NO S/S OF ANY DISTRESS NOTED. WILL CONTINUE TO MONITOR.
--- NOTE | 2017-08-09 | NUR ---
PT ON STABLE CONDITION. NO C/O ANY DISCOMFORT NOTED. ON O22L/NC. HEPARIN DRIP STILL INFUSING.
[2017-08-09] MEDS: ALBUTEROL 0.083% 2.5 MG/3 ML NEBU INH SCH ×4 (01:00→18:55)
[2017-08-09] MEDS: IPRATROPIUM 0.02% 0.5 MG/2.5 ML NEBU INH SCH ×4 (01:00→18:55)
[2017-08-09] MEDS: hePARIN / DEXT 5% PREMIX 250 ML IV SCH ×2 (01:23→03:43)
--- NOTE | 2017-08-09 01:28 | NUR ---
PT DOES NOT WANT TO TAKE TX NOW. HE SAID HE WANTS TO SLEEP AND WILL TAKE IT IN MORNING. NO SOB OR DISTRESS NOTED. SLEEPING COMFORTABLY. WILL CONTINUE TO MONITOR.
--- NOTE | 2017-08-09 03:39 | NUR ---
LAB CALLED FOR PTT 70.5 SO PHARMACY WAS CALLED AND TALKED TO CELIA. SHE SAID TO FOLLOW THE PROTOCOL FOR DECREASE HEPARIN RATE TO 125 UNITS /HR.
[2017-08-09 04:25] VITALS: BP 117/89
[2017-08-09 06:14] LABS: HEMATOCRIT 34.3 % (36-52); HEMOGLOBIN 11.4 g/dL (12.0-18.0); MEAN CORPUSCULAR HEMOGLOBIN 30 pg (27-31); MEAN CORPUSCULAR HGB CONC 33 g/dL (33-37); MEAN CORPUSCULAR VOLUME 90 fL (80-94); PLATELET COUNT (AUTO) 146 K/uL (140-450); RED BLOOD CELL COUNT(AUTO) 3.82 MIL/uL (4.20-6.10); RED CELL DISTRIBUTION WIDTH 18.6 % (11.6-13.7); WHITE BLOOD COUNT (AUTO) 6.2 K/uL (4.8-10.8)
--- NOTE | 2017-08-09 06:30 | NUR ---
LT HAND IV ACCESS FOR HEPARIN, LEAKING. DISCONTINUED. STARTED NEW IV ACCESS SAME HAND LITTLE HIGHER THAN THE PREVIOUS SITE G#22. HEPARIN INFUSING.
--- NOTE | 2017-08-09 07:20 | NUR ---
TO HOLD HEPARIN DRIP AT 0800 FOR US GUIDED THORACENTESIS AT 1200 NOON . ENDORSED PT IN STABLE CONDITION TO AM NURSE
--- NOTE | 2017-08-09 07:25 | NUR ---
RECEIVED REPORT FROM SAAS ARCHITECT NURSE, PT IS RESTING IN BED, AAOX4, AMBULATES WITH ASSIST, PT USES BEDSIDE URINAL, PT HAS IV ON HIS LEFT AC, SL. PT ALSO HAS IV ON HIS LEFT HAND, PATENT, INTACT, FLUSHING WELL. PT CURRENTLY ON HEPARIN DRIP AT 7.75ML/HR. PT IS ON O2 2L NC, NO S/S OF RESPIRATORY DISTRESS OR DISCOMFORT NOTED, DISCUSSED PLAN OF CARE WITH PT, PT VERBALIZED UNDERSTANDING, SAFETY/FALL PRECAUTIONS ARE IN PLACE, CALL LIGHT WITHIN REACH, WILL CONTINUE TO MONITOR.
[2017-08-09 07:52] LABS: EOSINOPHILS % (MANUAL) 3 % (0-4); LYMPHOCYTES % (MANUAL) 7 % (20-46); MONOCYTES % (MANUAL) 6 % (5-12)
--- NOTE | 2017-08-09 07:58 | NUR ---
PT WAS FOUND ON RA. TX WAS TOLERATED. LEFT PT ON RA. SA02 94 HR 92
[2017-08-09 08:00] VITALS: BP 131/92
--- NOTE | 2017-08-09 08:15 | NUR ---
HEPARIN DRIP STOPPED AT THIS TIME.
[2017-08-09] MEDS: ASPIRIN 81 MG TAB.CHEW PO SCH (09:00)
[2017-08-09] MEDS: FUROSEMIDE 20 MG/2 ML VIAL IVP SCH ×2 (09:29→21:30)
[2017-08-09 09:33] LABS: ANION GAP 15.5 (8-16); CARBON DIOXIDE 21.3 mmol/L (21-32); POTASSIUM 3.8 mmol/L (3.5-5.1)
[2017-08-09 09:34] LABS: CREATININE 1.2 mg/dL (0.7-1.3); TOTAL BILIRUBIN 0.8 mg/dL (0.0-1.0)
[2017-08-09 11:07] LABS: THYROID STIMULATING HORMONE 2.63 uIU/mL (0.34-3.74)
[2017-08-09 12:00] VITALS: BP 96/60
--- NOTE | 2017-08-09 14:46 | NUR ---
CM NOTE CONCURRENT REVIEW FAXED TO [facility] / FAX# [phone], ATTN: MARTIN #[phone]
--- NOTE | 2017-08-09 14:55 | NUR ---
PATIENT UNDERWENT LEFT SIDE THORACENTESES AT THIS TIME. 1.4 L OUTPUT, PT COMPLAINED OF MINOR DISCOMFORT. PT ASSISTED TO LAY BACK IN BED, CALL LIGHT IS WITHIN REACH, WILL CONTINUE TO MONITOR.
[2017-08-09 16:00] VITALS: BP 97/58
--- NOTE | 2017-08-09 19:10 | NUR ---
ENDORSED PT TO ONLINE MARKETING SPECIALIST NURSE FOR CONTINUITY OF CARE. PT CURRENTLY RECEIVING BREATHING TREATMENT. PT STABLE AT THIS TIME.
--- NOTE | 2017-08-09 19:15 | NUR ---
RECEIVED PT IN STABLE CONDITION FROM AM NURSE. AWAKE,ALERT AND, ORIENTED X4. ON TELE MONITOR- ST. WITH NO C/O OF ANY DISCOMFORT NOTED. GETTING BREATHING TREATMENT AT THIS TIME. HL ON THE LT HAND #22. AND LT AC #20. BOTH CLEAR AND PATENT. AMBULATORY TO BATHROOM. PLAN OF CARE DISCUSSED AND VERBALIZED UNDERSTANDING. FREQUENT ROUNDS NEEDED. BED ON LOW POSITION,CALL LIGHT AND URINAL PLACED WITHIN EASY REACH. WILL CONTINUE TO MONITOR.
[2017-08-09 20:00] VITALS: BP 117/60
[2017-08-09] MEDS ORDERED: LOVENOX 1MG/KG Q12H SUBQ SCH (21:00)
[2017-08-09 21:30] VITALS: BP 97/68
--- NOTE | 2017-08-09 21:30 | NUR ---
LASIX IVP NOT GIVEN FOR BP LOW 97/68. WILL CONTINUE TO MONITOR.
[2017-08-09] MEDS: TAMSULOSIN 0.4 MG CAP PO SCH (21:43)
[2017-08-09] MEDS: ENOXAPARIN 60 MG/0.6 ML SYR SUBQ SCH (21:46)
[2017-08-09] MEDS: LEVOFLOXACIN 250 MG/D5 PREMIX 50 ML IV SCH (21:47)
--- NOTE | 2017-08-09 22:30 | NUR ---
ASLEEP. NO S/S OF ANY DISTRESS NOTED. WILL CONTINUE TO MONITOR.
[2017-08-10] MEDS: IPRATROPIUM 0.02% 0.5 MG/2.5 ML NEBU INH SCH ×4 (00:04→19:00)
[2017-08-10] MEDS: ALBUTEROL 0.083% 2.5 MG/3 ML NEBU INH SCH ×4 (00:05→19:00)
[2017-08-10 00:10] VITALS: BP 116/85
--- NOTE | 2017-08-10 01:30 | NUR ---
ASLEEP. NO S/S OF ANY DISCOMFORT NOR PAIN NOTED. WILL CONTINUE TO MONITOR.
--- NOTE | 2017-08-10 04:00 | NUR ---
PT HAS BEEN IN STABLE CONDITION DURING THE NIGHT.
[2017-08-10 04:05] VITALS: BP 116/89
[2017-08-10] MEDS: LEVOTHYROXINE 0.1 MG TAB PO SCH (06:08)
[2017-08-10 06:50] LABS: BASOPHILS # (AUTO) 0.1 K/uL (0.00-0.22); BASOPHILS % (AUTO) 2.1 % (0.0-2.0); EOSINOPHILS # (AUTO) 0.1 K/uL (0-0.4); HEMATOCRIT 33.6 % (36-52); LYMPHOCYTES # (AUTO) 0.5 K/uL (2.0-11.5); LYMPHOCYTES % (AUTO) 10.2 % (20.5-51.1); MEAN CORPUSCULAR HEMOGLOBIN 29 pg (27-31); MEAN CORPUSCULAR HGB CONC 33 g/dL (33-37); MEAN CORPUSCULAR VOLUME 89 fL (80-94); MONOCYTES # (AUTO) 0.6 K/uL (0.8-1.0); MONOCYTES % (AUTO) 12.8 % (1.7-9.3); NEUTROPHILS # (AUTO) 3.3 K/uL (1.8-7.7); NEUTROPHILS % (AUTO) 72.9 % (42.2-75.2); PLATELET COUNT (AUTO) 141 K/uL (140-450); RED BLOOD CELL COUNT(AUTO) 3.76 MIL/uL (4.20-6.10); WHITE BLOOD COUNT (AUTO) 4.6 K/uL (4.8-10.8)
--- NOTE | 2017-08-10 07:20 | NUR ---
ENDORSED PT IN STABLE CONDITION TO AM NURSE.
--- NOTE | 2017-08-10 07:25 | NUR ---
RECEIVED REPORT FROM NURSES MEDICAL ASSISTANTS PHLEBOTOMISTS NURSE, PT IS RESTING IN BED, AAOX4, AMBULATES WITH ASSIST, PT USES BEDSIDE URINAL, PT HAS IV ON HIS LEFT HAND, SALINE LOCKED, PT IS ON O2 2L NC, NO S/S OF RESPIRATORY DISTRESS OR DISCOMFORT NOTED, DISCUSSED PLAN OF CARE WITH PT, PT VERBALIZED UNDERSTANDING, SAFETY/FALL PRECAUTIONS ARE IN PLACE, CALL LIGHT WITHIN REACH, WILL CONTINUE TO MONITOR.
[2017-08-10 08:00] VITALS: BP 142/94
[2017-08-10 08:00] LABS: ALBUMIN 2.7 g/dL (3.4-5.0); ANION GAP 12.5 (8-16); CARBON DIOXIDE 25.2 mmol/L (21-32); POTASSIUM 3.7 mmol/L (3.5-5.1); TOTAL BILIRUBIN 0.7 mg/dL (0.0-1.0)
[2017-08-10] MEDS: FUROSEMIDE 20 MG/2 ML VIAL IVP SCH (09:14)
[2017-08-10] MEDS: FINASTERIDE 5 MG TAB PO SCH (09:14)
[2017-08-10] MEDS: ASPIRIN 81 MG TAB.CHEW PO SCH (09:14)
[2017-08-10] MEDS: ENOXAPARIN 60 MG/0.6 ML SYR SUBQ SCH ×2 (09:20→20:38)
--- NOTE | 2017-08-10 09:20 | NUR ---
DUE MEDICATIONS GIVEN, PT TOLERATED WELL, CALL LIGHT IS WITHIN REACH, WILL CONTINUE TO MONITOR.
--- NOTE | 2017-08-10 11:21 | NUR ---
RECEIVED ORDER FOR LOVENOX AND PT INR CHECK. I CALLED MARTIN FROM [facility]. THIS PATIENT WILL BE HERS BUT DOESN'T HAVE ANY INFORMATION YET. I TOLD HER THAT REVIEW WERE FAXED LAST 2 DAY. SHE ASKED ME TO FAX THE FACE SHEET TO HER WHICH I DID. SHE SAID I NEEDED TO FILL OUT THE [facility] PRIOR AUTHORIZATION REQUEST FORM. I FILLED IT OUT AND FAXED IT TO THEM AT [phone]. I CALLED NEL AT [facility] AND FAXED ORDER. SHE WILL GET AUTH FROM MARTIN.
[2017-08-10 12:00] VITALS: BP 115/88
--- NOTE | 2017-08-10 12:00 | NUR ---
PT ASSISTED BACK INTO BED FROM THE RESTROOM. PT PLACED ON O2 2L NC. ALL NEEDS ARE MET AT THIS TIME, CALL LIGHT IS WITHIN REACH, WILL CONTINUE TO MONITOR.
--- NOTE | 2017-08-10 12:10 | NUR ---
FAXED CONCURRENT REVIEW TO [facility] [phone] PHONE MARTIN [phone] I CALLED [facility] AND SPOKE WITH KERRIE THEY DO NOT HAVE THE FORM YET. I SPOKE WITH NEL AT [facility] AND THEY WILL TAKE THE PATIENT. SHE SPOKE WITH DR. BERGERON, AND HE SAID THE PT,ORIN TRINIDAD BE Q 3 DAYS.
[2017-08-10 12:52] LABS: PROTHROMBIN TIME 13.1 secs (10.8-13.4)
--- NOTE | 2017-08-10 13:07 | NUR ---
CALLED [facility] AND SPOKE WITH MEHNAZ WHO SAID THE REQUEST WOULD TAKE 24 TO 72 HOURS FOR APPROVAL. I CALLED [facility] AGAIN AND SPOKE WITH SHANEKA. SHE SAID THE LOVENOX IS ON THE FORMULARY AND THAT THE PATIENT JUST NEEDS TO TAKE THE PRESCRIPTION TO HIS PHARMACY TO GET THE MEDICATION. THERE WILL BE A $1.25 COPAY FOR THE LOVENOX PER DOSE. JACOB POON AWARE. [facility] TO DO PT INR [phone]
--- NOTE | 2017-08-10 14:20 | NUR ---
PT IS RESTING IN BED AT THIS TIME. PATIENT'S FAMILY MEMBER IS AT BEDSIDE. CALL LIGHT WITHIN REACH.
[2017-08-10 16:00] VITALS: BP 97/65
--- NOTE | 2017-08-10 16:30 | NUR ---
PT SLEEPING IN BED AT THIS TIME. NO S/S OF RESPIRATORY DISTRESS OR DISCOMFORT NOTED, CALL LIGHT WITHIN REACH.
[2017-08-10] MEDS ORDERED: WARFARIN 5 MG TAB PO SCH (17:00)
--- NOTE | 2017-08-10 17:15 | NUR ---
FIRST DOSE OF COUMADIN GIVEN. PT TEACHING ON COUMADIN, PT VERBALIZED UNDERSTANDING.
--- NOTE | 2017-08-10 19:10 | NUR ---
ENDORSED PT TO HEALTH RESEARCHER NURSE FOR CONTINUITY OF CARE. PT STABLE AT THIS TIME.
--- NOTE | 2017-08-10 19:11 | NUR ---
RECEIVED REPORT FROM DAY NURSE, PT IN STABLE CONDITION. NO S/S OF DISTRESS NOTED. PT AAOX4, ON 2L O2 NC. IV TO L HAND 22G SALINE LOCK, PATENT AND INTACT. SKIN IS WARM AND DRY TO TOUCH, INTACT. RR EVEN/UNLABORED. BOWEL SOUNDS PRESENT. INITIAL ASSESSMENT COMPLETED. PLAN OF CARE DISCUSSED WITH PT, VERBALIZED UNDERSTANDING. ALL SAFETY PRECAUTIONS MET, CALL LIGHT WITHIN REACH, WILL CONTINUE TO MONITOR
[2017-08-10 20:00] VITALS: BP 113/78
[2017-08-10] MEDS: TAMSULOSIN 0.4 MG CAP PO SCH (20:38)
[2017-08-10] MEDS: SODIUM CHLORIDE 1 GM TAB PO SCH (20:38)
--- NOTE | 2017-08-10 21:27 | NUR ---
PAGED DR. BOYKIN BECAUSE PT STATES HE HASN'T BEEN ABLE TO SLEEP
[2017-08-10] MEDS ORDERED: ZOLPIDEM 5 MG TAB PO PRN (21:35)
--- NOTE | 2017-08-10 21:50 | NUR ---
DR. BOYKIN PAGED BACK, NEW ORDERS GIVEN
--- NOTE | 2017-08-10 22:00 | NUR ---
PT RESTING COMFORTABLY IN BED,NO S/S OF DISTRESS NOTED. ALL SAFETY PRECAUTIONS MET, WILL CONTINUE TO MONITOR.
[2017-08-10] MEDS: LEVOFLOXACIN 250 MG/D5 PREMIX 50 ML IV SCH (22:08)
[2017-08-11] VITALS: BP 137/68
--- NOTE | 2017-08-11 | NUR ---
PT RESTING COMFORTABLY IN BED,NO S/S OF DISTRESS NOTED. ALL SAFETY PRECAUTIONS MET, WILL CONTINUE TO MONITOR.
[2017-08-11] MEDS: IPRATROPIUM 0.02% 0.5 MG/2.5 ML NEBU INH SCH ×2 (01:00→07:04)
[2017-08-11] MEDS: ALBUTEROL 0.083% 2.5 MG/3 ML NEBU INH SCH ×2 (01:00→07:05)
--- NOTE | 2017-08-11 02:11 | NUR ---
PT RESTING COMFORTABLY IN BED,NO S/S OF DISTRESS NOTED. ALL SAFETY PRECAUTIONS MET, WILL CONTINUE TO MONITOR.
[2017-08-11 04:00] VITALS: BP 128/64
--- NOTE | 2017-08-11 05:45 | NUR ---
IV ON L HAND NO LONGER PATENT OR FLUSHING. NEW IV STARTED IN R WRIST 22G, ONE ATTEMPT MADE, PT TOLERATED WELL
[2017-08-11] MEDS: LEVOTHYROXINE 0.1 MG TAB PO SCH (06:08)
[2017-08-11 06:44] LABS: BASOPHILS # (AUTO) 0.1 K/uL (0.00-0.22); BASOPHILS % (AUTO) 1.8 % (0.0-2.0); EOSINOPHILS # (AUTO) 0.1 K/uL (0-0.4); EOSINOPHILS % (AUTO) 1.8 % (0.0-4.0); HEMATOCRIT 34.5 % (36-52); HEMOGLOBIN 11.4 g/dL (12.0-18.0); LYMPHOCYTES # (AUTO) 0.4 K/uL (2.0-11.5); LYMPHOCYTES % (AUTO) 11.2 % (20.5-51.1); MEAN CORPUSCULAR HEMOGLOBIN 30 pg (27-31); MEAN CORPUSCULAR HGB CONC 33 g/dL (33-37); MEAN CORPUSCULAR VOLUME 90 fL (80-94); MONOCYTES # (AUTO) 0.2 K/uL (0.8-1.0); MONOCYTES % (AUTO) 6.3 % (1.7-9.3); NEUTROPHILS # (AUTO) 3.1 K/uL (1.8-7.7); NEUTROPHILS % (AUTO) 78.9 % (42.2-75.2); PLATELET COUNT (AUTO) 124 K/uL (140-450); RED BLOOD CELL COUNT(AUTO) 3.85 MIL/uL (4.20-6.10); RED CELL DISTRIBUTION WIDTH 19.7 % (11.6-13.7); WHITE BLOOD COUNT (AUTO) 3.9 K/uL (4.8-10.8)
[2017-08-11 07:03] LABS: ALBUMIN 2.8 g/dL (3.4-5.0); ANION GAP 11.7 (8-16); CARBON DIOXIDE 25.1 mmol/L (21-32); CREATININE 0.8 mg/dL (0.7-1.3); POTASSIUM 3.8 mmol/L (3.5-5.1); TOTAL BILIRUBIN 0.8 mg/dL (0.0-1.0)
[2017-08-11 07:06] LABS: PROTHROMBIN TIME 12.7 secs (10.8-13.4)
--- NOTE | 2017-08-11 07:07 | NUR ---
LAB CALLED WITH CRITICAL FOR SODIUM 120, CALLED DR. PÉREZ TO INFORM Addendum: 08/11/17 at 0723 by Linda Britt RN CORRECTION: CALLED DR. ELYSSA QUESADA CRITICAL SODIUM
--- NOTE | 2017-08-11 07:15 | NUR ---
PATIENT QUIET AND RESTING. EASILY ARROUSABLE AND RESPONSIVE TO VERBAL COMMUNICATION. TX GIVEN. TOLERATED TX WELL. RETURNED TO NASAL CANNULA 2L. NO SOB OR RESPIRATORY DISTRESS NOTED AT THIS TIME.
--- NOTE | 2017-08-11 07:20 | NUR ---
REPORT GIVEN TO DAY NURSE KANDACE RN FOR CONTINUITY OF CARE, PT IN STABLE CONDITION
--- NOTE | 2017-08-11 07:30 | NUR ---
RECEIVED REPORT FROM APPRENTICE MACHINIST OUTSIDE NURSE, PT IS AAOX4, RECEIVING BREATHING TX. NO S/S OF DISTRESS NOTED. PT USES O2 2L VIA NC. IV TO R HAND 22G SALINE LOCK, PATENT AND INTACT. SKIN IS WARM AND DRY TO TOUCH, INTACT. LEFT ARM LOOKS SLIGHTLY SWOLLEN, PROBABLY DUE TO AN INFILTRATED IV. BOWEL SOUNDS PRESENT. INITIAL ASSESSMENT COMPLETED. PLAN OF CARE DISCUSSED WITH PT, PT VERBALIZED UNDERSTANDING. ALL SAFETY PRECAUTIONS MET, CALL LIGHT WITHIN REACH, WILL CONTINUE TO MONITOR.
[2017-08-11 08:00] VITALS: BP 117/84
[2017-08-11] MEDS: SODIUM CHLORIDE 1 GM TAB PO SCH (09:31)
[2017-08-11] MEDS ORDERED: LOV60I SUBQ (09:31)
[2017-08-11] MEDS ORDERED: LEVO500T2 PO (09:31)
[2017-08-11] MEDS: FINASTERIDE 5 MG TAB PO SCH (09:31)
[2017-08-11] MEDS: ASPIRIN 81 MG TAB.CHEW PO SCH (09:31)
[2017-08-11] MEDS ORDERED: WARF5TAB1 PO (09:31)
--- NOTE | 2017-08-11 09:35 | NUR ---
DR BERGERON HAS SEEN THE PT. PT WANTS TO SIGN AMA.
[2017-08-11] MEDS: ENOXAPARIN 60 MG/0.6 ML SYR SUBQ SCH (09:36)
--- NOTE | 2017-08-11 10:00 | NUR ---
PT SIGNED AMA, WAITING FOR TO PICK HIM UP.
--- NOTE | 2017-08-11 11:30 | NUR ---
[facility] ([facility]) COORDINATOR, NEL, CONTACTED, [facility] WILL SEND NURSE ANNELISE FOR LOVENOX INJ TEACHING. AND PT/INR Q3 STARTING SUNDAY PREVIOUSLY SCHEDULED. PHONE NUMBER FOR NEL IS [phone]
--- NOTE | 2017-08-11 11:50 | NUR ---
PT LEFT WITH AMA, RX GIVEN TO PT, TAUGHT PT AND HIS HOW TO GIVE LOVENOX INJECTION ON THE ABD, TAUGHT PT HIS MEDICATION OF ABX AND WARFARIN WHICH ONCE A DAY. NEXT DOSE IS DUE TONIGHT. PT VERBALIZED UNDERSTANDING AND WILL GO TO PHARMACY TODAY. IV DC'D, TIP INTACT, PRESSURE APPLIED. NO ACUTE DISTRESS NOTED. WHEELED PT TO HIS VEHICLE. PT LEFT WITH ALL HIS BELONGINGS.
--- NOTE | 2017-08-11 13:48 | NUR ---
CECELIA FILED, ID NUMBER [id number]
== END 2017-08-11 11:55 | disposition left against medical advice (07) | DRG 871 ==
LOC: MED 19:20 → MMU 21:59 → MTU 22:51
PROVIDERS: ADMIT Internal Medicine; ATTEND Internal Medicine
PROC: 0W9B3ZZ Drainage of Left Pleural Cavity, Percutaneous Approach (ICD-10-PCS; principal; 2017-08-09)
DX: A41.9 Sepsis, unspecified organism (principal); I26.99 Other pulmonary embolism without acute cor pulmonale; J90 Pleural effusion, not elsewhere classified; E22.2 Syndrome of inappropriate secretion of antidiuretic hormone; J18.9 Pneumonia, unspecified organism; Z99.81 Dependence on supplemental oxygen; C34.90 Malignant neoplasm of unspecified part of unspecified bronchus or lung; E03.9 Hypothyroidism, unspecified; J44.9 Chronic obstructive pulmonary disease, unspecified; Z88.0 Allergy status to penicillin; Z85.819 Personal history of malignant neoplasm of unspecified site of lip, oral cavity, and pharynx; Z79.899 Other long term (current) drug therapy; Z79.82 Long term (current) use of aspirin; Z87.891 Personal history of nicotine dependence
CPT/HCPCS: 36415; 71045; 71250; 76604; 76942; 78582; 80053; 81003; 82550; 82553; 83605; 83880; 83930; 84443; 84484; 85025; 85610; 85730; 87040; 87081; 93005; 93970; 94640; 96361; 96374; 96376; 99285; J1160; J1644; J1650; J1940; J1956; J2001; J3490; J7030; J7613; J7620; J7644; Q0092